=== PATIENT | female | born 1980 | race African-American/Black ===

== ENCOUNTER 2016-10-16 22:54 | Emergency (ER) | payer OTHER ==
[~2016-10-16] VITALS: Ht 172.7 cm; Wt 95.3 kg
[~2016-10-16 22:54] MED LIST: IBUPROFEN800 M1 PO; KEFLEX500 MG ORAL; PREDNISONE20 MG ORAL
[2016-10-16] MEDS ORDERED: NKM (23:19)
[2016-10-16 23:52] LABS: APPEARANCE,URINE CLEAR; KETONES,URINE NEGATIVE (NEGATIVE); LEUKOCYTE ESTERASE ,URINE NEGATIVE (NEGATIVE); NITRITE,URINE NEGATIVE (NEGATIVE); PH,URINE 7 (4.5-8.0); PROTEIN,URINE NEGATIVE (NEGATIVE); UROBILINOGEN,URINE NORMAL MG/DL (0.0-1.0)
[2016-10-16 23:57] VITALS: BP 145/97
[2016-10-17] MEDS ORDERED: IBUPROFEN600 MG ORAL (00:45)
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
[2016-10-17 01:20] VITALS: BP_SYST 145; BP_SYST 147; BP_DIAS 95; BP_DIAS 97
--- NOTE | 2016-10-17 11:13 | Diagnostic Imaging Report ---
Indication: Back pain Comparison: None Findings: 3 views of the lumbar spine were obtained. No acute fracture or malalignment is identified. Vertebral body heights and disk spaces are well maintained. Posterior elements are unremarkable. Impression: No acute findings.
== END 2016-10-17 01:20 | disposition home or self-care (01) ==
LOC: EMR 23:30
DX: S39.012A Strain of muscle, fascia and tendon of lower back, initial encounter (principal); S30.1XXA Contusion of abdominal wall, initial encounter; V43.52XA Car driver injured in collision with other type car in traffic accident, initial encounter; Y92.410 Unspecified street and highway as the place of occurrence of the external cause; Y99.8 Other external cause status
CPT/HCPCS: 72020; 81003; 81025; 99283

== ENCOUNTER 2017-04-04 15:10 | Emergency (ER) | payer OTHER ==
[~2017-04-04] VITALS: Ht 172.7 cm; Wt 90.7 kg
[~2017-04-04 15:10] MED LIST changes: +IBUPROFEN600 MG ORAL; +NKM
--- NOTE | 2017-04-04 16:00 | Emergency Room Report ---
History of Present Illness General Chief Complaint: Sore Throat Source: Patient Present Illness HPI 36 YO female presents to the ED C/O 05/10 in severity sore throat with rhinorrhea x 3 days, and multiple insect bites to the bilateral LE's with itching, erythema, and swelling x 2 days. pt. denies fevers or chills, reports sneezing, denies rashes or lesions other than bites on the LE's, pt. denies neck pain, stiffness, changes in voice, swollen tonsils, or SOB. denies ill contacts or recent travel. Denies CP, Palpitations, LOC, AMS, dizziness, Changes in Vision, Sensation, paresthesias, or a sudden severe headache. Allergies: Uncoded Allergies: sea weed (Allergy, Unknown, 10/06/14) Patient History Past Medical History: see triage record Past Surgical History: none Pertinent Family History: none Last Menstrual Period: unk Now: No : 3 Para: 1 Reviewed Nursing Documentation: PMH: Agreed, PSxH: Agreed Nursing Documentation-PMH Past Medical History: No Stated History Review of Systems All Other Systems: negative except mentioned in HPI Physical Exam Vital Signs Date Time Temp Pulse Resp B/P Pulse Ox O2 Delivery O2 Flow Rate FiO2 7/17 15:20 98.1 85 18 156/105 99 Room Air Sp02 EP Interpretation: reviewed, abnormal - elevated bp. General Appearance: no apparent distress, alert, GCS 15, non-toxic Head: normocephalic, atraumatic Eyes: bilateral eye PERRL, bilateral eye normal inspection ENT: hearing grossly normal, normal pharynx, no angioedema, normal voice, pharyngeal erythema - cobble stone appearance Neck: full range of motion, no meningismus, no bony tend, supple/symm/no masses Respiratory: lungs clear, normal breath sounds, speaking full sentences Cardiovascular #1: regular rate, rhythm, no edema, normal capillary refill Musculoskeletal: back normal, gait/station normal, normal range of motion, non- tender Neurologic: alert, oriented x3, responsive, motor strength/tone normal, sensory intact, cerebellar normal, normal gait, speech normal Psychiatric: judgement/insight normal, memory normal, mood/affect normal Skin: normal color, warm/dry, well hydrated, other - multiple small insect bites to the bilateral ankles and calves, no appreciable increased temperature to palpation, no swelling other than localized about each bite which are less than 0.3cm in diameter. Lymphatic: no adenopathy Medical Decision Making PA Attestation Dr. Baker is my supervising Physician whom patient management has been discussed with. Diagnostic Impression: Primary Impression: Post-nasal drainage Additional Impression: Insect bite Qualified Codes: W57.XXXA - Bitten or stung by nonvenomous insect and other nonvenomous arthropods, initial encounter ER Course 36 YO female presents to the ED C/O 05/10 in severity sore throat with rhinorrhea x 3 days, and multiple insect bites to the bilateral LE's with itching, erythema, and swelling x 2 days. pt. denies fevers or chills, reports sneezing, denies rashes or lesions other than bites on the LE's, pt. denies neck pain, stiffness, changes in voice, swollen tonsils, or SOB. denies ill contacts or recent travel. Denies CP, Palpitations, LOC, AMS, dizziness, Changes in Vision, Sensation, paresthesias, or a sudden severe headache. Ddx considered but are not limited to cellulitis, scabies, insect bites, tic bites, spider bites, contact dermatitis, Drug reaction, allergic reaction, fungal infection, lice. pharyngitis, PND, peritonsillar abscess, URI Vital signs: are WNL, pt. is afebrile H&PE are most consistent with insect bites of the LE with localized reactions , no evidence of cellulitis, and Post nasal drainage causing sore throat. PE of the Throat is WNL and not suspicious for bacterial infection. ORDERS: none required at this time, the diagnosis is clinical ED INTERVENTIONS: None required at this time. DISCHARGE: At this time pt. is stable for d/c to home. Will provide printed patient care instructions, and any necessary prescriptions. Care plan and follow up instructions have been discussed with the patient prior to discharge. Last Vital Signs Date Time Temp Pulse Resp B/P Pulse Ox O2 Delivery O2 Flow Rate FiO2 04/04/17 15:20 98.1 85 18 156/105 99 Room Air Disposition: HOME, SELF-CARE Condition: Stable Scripts Hydrocortisone (Hydrocortisone Cream 2.5%) Y Cream.appl 1 APPLIC TP BID, #28.3 GM Prov: Maria De Jesus Wiley 7/5/17 Cetirizine Hcl* (ZYRTEC*) 10 Mg Tablet 10 MG ORAL DAILY for 30 Days, #30 TAB 0 Refills Prov: Maria De Jesus Wiley 04/04/17 Diphenhydramine Hcl (BENADRYL ALLERGY) 25 Mg Tablet 25 MG PO TID, #20 TAB Prov: Maria De Jesus Wiley 04/04/17 Patient Instructions: Allergies, [id number], Insect Bite Additional Instructions: Take medications as directed. Follow up with PCP in 3-5 days Return sooner to ED if new symptoms occur, or current symptoms become worse. Do not drink alcohol, drive, or operate heavy machinery while taking Benadryl as this may cause drowsiness. - Please note that this Emergency Department Report was dictated using [employer] technology software, occasionally this can lead to erroneous entry secondary to interpretation by the dictation equipment. Maria De Jesus Wiley Apr 04, 2017 16:00
[2017-04-04] MEDS ORDERED: ZYRTEC10 MG ORAL (16:01)
[2017-04-04] MEDS ORDERED: BENADRYL ALLERG25 M1 PO (16:01)
[2017-04-04] MEDS ORDERED: HYDROCORTISONE30 G2 TP (16:01)
[2017-04-04 16:09] VITALS: BP 156/105
== END 2017-04-04 16:09 | disposition home or self-care (01) ==
LOC: EMR 15:55
DX: R09.82 Postnasal drip (principal); S80.862A Insect bite (nonvenomous), left lower leg, initial encounter; S80.861A Insect bite (nonvenomous), right lower leg, initial encounter; W57.XXXA Bitten or stung by nonvenomous insect and other nonvenomous arthropods, initial encounter; Y92.9 Unspecified place or not applicable
CPT/HCPCS: 99284

== ENCOUNTER 2018-05-10 02:07 | Emergency (ER) | payer MEDICAID, OTHER ==
[~2018-05-10] VITALS: Ht 172.7 cm; Wt 86.2 kg
[~2018-05-10 02:07] MED LIST changes: +BENADRYL ALLERG25 M1 PO; +HYDROCORTISONE30 G2 TP; +ZYRTEC10 MG ORAL
[2018-05-10 02:34] VITALS: BP 138/78
[2018-05-10 03:47] VITALS: BP 130/72
[2018-05-10 03:48] VITALS: BP 138/78
--- NOTE | 2018-05-17 07:13 | Emergency Room Report ---
History of Present Illness General Chief Complaint: General Complaint Source: Patient Present Illness HPI Patient is a 38-year-old female who presented after increased lower extremity numbness for approximately one week. Patient gradual onset of symptoms. The patient stated that she had similar symptoms in the past. She denies recent trauma. She reported having no prior history of diabetes. She reports having been drinking alcohol heavily. Allergies: Uncoded Allergies: sea weed (Allergy, Unknown, 10/06/14) Patient History Past Medical History: see triage record Last Menstrual Period: march Reviewed Nursing Documentation: PMH: Agreed; PSxH: Agreed Nursing Documentation-PMH Past Medical History: No Stated History Review of Systems All Other Systems: negative except mentioned in HPI Physical Exam General Appearance: well appearing, no apparent distress, alert, GCS 15 Head: normocephalic, atraumatic ENT: hearing grossly normal, normal voice Neck: full range of motion, supple Respiratory: no respiratory distress, speaking full sentences Cardiovascular #1: normal inspection, normal peripheral pulses, regular rate, rhythm Musculoskeletal: no calf tenderness Neurologic: normal gait Psychiatric: mood/affect normal Skin: no rash Medical Decision Making Diagnostic Impression: Primary Impression: Peripheral neuropathy Disposition: HOME, SELF-CARE Condition: Stable Patient Instructions: Peripheral Neuropathy Additional Instructions: Follow up with your doctor for a neurology referral. Return if any severe headache, weakness or other problems. Valentín Baker MD May 17, 2018 07:12
== END 2018-05-10 03:56 | disposition home or self-care (01) ==
LOC: EMR 02:40
DX: G62.9 Polyneuropathy, unspecified (principal)
CPT/HCPCS: 81025; 99283

== ENCOUNTER 2020-07-15 00:01 | Emergency (ER) | payer MEDICAID, OTHER ==
[~2020-07-15] VITALS: Ht 172.7 cm; Wt 68.0 kg
[~2020-07-15 00:01] MED LIST changes: +BACITRACIN-P28.35 GM TP; +BACTRIM DS TAB1 EAC1 ORAL; +TYLENOL EXTRA500 MG ORAL
[2020-07-15 00:19] VITALS: BP 137/87
--- NOTE | 2020-07-15 00:20 | NUR ---
ED Nurse Note: walked in to ed c/o right sided toothache onset 3 days ago with unk cause. denies trauma. does not present with fever. aaox4, ambulatory, vss, nad.
[2020-07-15] MEDS ORDERED: AMOXICILLIN500 MG ORAL (00:29)
[2020-07-15] MEDS ORDERED: HYDROCODON-ACE1 EA15 ORAL (00:29)
[2020-07-15] MEDS ORDERED: IBUPROFEN600 M1 ORAL (00:29)
[2020-07-15] MEDS ORDERED: HYDROcodone/Acetamin 5/325 tab ORAL ONE (00:30)
--- NOTE | 2020-07-15 00:30 | Emergency Room Report ---
History of Present Illness General Chief Complaint: Toothache Source: Patient Present Illness [facility] This is a 40-year-old female with no past medical history. She presents with chief complaint of toothache. Onset for 2 months now. Worse with eating. She said it felt loose. Pain is mostly to the right lower jaw and the right upper jaw. Nothing major. 8 out of 10. Worse with eating and drinking. Better w ithout. Has not seen a dentist. No swelling. No drainage. Allergies: Uncoded Allergies: sea weed (Allergy, Unknown, 10/06/14) COVID-19 Screening Contact w/high risk pt: No Experienced COVID-19 symptoms?: No COVID-19 Testing performed PROPERTY CONDITION ASSESSOR: No Patient History Past Medical History: see triage record, old chart reviewed Past Surgical History: none Pertinent Family History: none Social History: Denies: smoking Now: No : 3 Para: 1 Immunizations: other Reviewed Nursing Documentation: PMH: Agreed; PSxH: Agreed Nursing Documentation-PMH Past Medical History: No Stated History Review of Systems Eye: Denies: eye pain, blurred vision ENT: Denies: ear pain, nose congestion, throat swelling Respiratory: Denies: cough, shortness of breath Cardiovascular: Denies: chest pain, palpitations Gastrointestinal: Denies: abdominal pain, diarrhea, nausea, vomiting Musculoskeletal: Denies: back pain, joint pain Skin: Denies: rash Neurological: Denies: headache, numbness Endocrine: Denies: increased thirst, increased urine Hematologic/Lymphatic: Denies: easy bruising All Other Systems: negative except mentioned in HPI Physical Exam Vital Signs Date Time Temp Pulse Resp B/P (MAP) Pulse Ox O2 Delivery O2 Flow Rate FiO2 07/15/20 00:05 98.1 80 18 140/98 (112) 98 Room Air Vitals normal except for high blood pressure Sp02 EP Interpretation: reviewed, normal General Appearance: well appearing, no apparent distress, alert Head: normocephalic, atraumatic Eyes: bilateral eye PERRL, bilateral eye EOMI ENT: hearing grossly normal, normal pharynx, other - Right lower wisdom teeth this decay. Right upper first molar is decayed. Tender to percussion. Neck: full range of motion, supple, no meningismus Respiratory: chest non-tender, lungs clear, normal breath sounds Cardiovascular #1: regular rate, rhythm, no murmur Gastrointestinal: normal bowel sounds, non tender, no mass, no organomegaly, no bruit, non-distended Musculoskeletal: back normal, normal range of motion, gait/station normal Psychiatric: mood/affect normal Medical Decision Making Diagnostic Impression: Primary Impression: Dental decay Additional Impression: Toothache ER Course Patient presents with dental pain. No evidence of abscess can be I&D. Will discharge home with outpatient dental referral. Last Vital Signs Date Time Temp Pulse Resp B/P (MAP) Pulse Ox O2 Delivery O2 Flow Rate FiO2 07/15/20 00:19 98.0 76 18 137/87 98 Room Air Status: improved Disposition: HOME, SELF-CARE Condition: Stable Scripts Ibuprofen* (MOTRIN*) 600 Mg Tablet 600 MG ORAL Q6H PRN for For Pain, #30 TAB 0 Refills Prov: Jayesh Yanez MD 07/15/20 Hydrocodone/Acetaminophen 5-325* (HYDROCODONE/ACETAMINOPHEN 5-325*) 1 Each Tablet 1 TAB ORAL Q6H PRN for For Pain, #10 TAB 0 Refills Prov: Jayesh Yanez MD 07/15/20 Amoxicillin* (AMOXIL*) 500 Mg Capsule 500 MG ORAL THREE TIMES A DAY, #21 CAP Prov: Jayesh Yanez MD 07/15/20 Patient Instructions: Dental Pain Additional Instructions: Follow up with dentist NAHOMY. Return if symptoms worsen. Jayesh Yanez MD Jul 15, 2020 00:30
[2020-07-15 00:56] VITALS: BP 112/68
--- NOTE | 2020-07-15 00:56 | NUR ---
ER DISCHARGE NOTE: Patient is cleared to be discharged per ERMD, pt is aox4, on room air, with stable vital signs. pt was given dc and paper prescription with instructions to f/u with dentist, pt was able to verbalize understanding, pt id band removed. pt is able to ambulate with steady gait. pt took all belongings.
== END 2020-07-15 00:56 | disposition home or self-care (01) ==
LOC: EMR 00:31
DX: K02.9 Dental caries, unspecified (principal); K08.89 Other specified disorders of teeth and supporting structures; Z91.09 Other allergy status, other than to drugs and biological substances
CPT/HCPCS: 99282